=== PATIENT | male | born 1990 | race Two or more races ===

== ENCOUNTER 2020-10-05 16:43 | Emergency (ER) | payer SELFPAY ==
[~2020-10-05] VITALS: Ht 167.6 cm; Wt 81.2 kg
[2020-10-05 17:37] LABS: BILIRUBIN,URINE NEGATIVE (NEG); CLARITY,URINE CLOUDY; COLOR,URINE YELLOW; NITRITE,URINE NEGATIVE (NEG); PROTEIN,URINE NEGATIVE (NEG-TRACE)
[2020-10-05 17:46] LABS: BACTERIA,URINE 0 /HPF (0-FEW); WBC,URINE >40 /HPF (0-4)
[2020-10-05 17:58] VITALS: BP 134/94
--- NOTE | 2020-10-05 18:15 | PHYS DOC ---
Past Medical History Past Medical History: No Pertinent History Past Surgical History: No Surgical History Smoking Status: Never Smoker Alcohol Use: None General Adult EDM: Chief Complaint: PAIN ON URINATION HPI: HPI: Patient is a 30 year old male who presents with 2 days of burning with urination and white penile discharge. Patient states he has a possible sexually-transmitted disease. He denies abdominal pain, fever, back pain, nausea, vomiting, diarrhea, chest pain, shortness of air, headache, dizziness. He states he has no problems urinating and he feels that he fully drains his bladder. At this time denies any pain. Denies any past medical history. Review of Systems: Review of Systems: Constitutional: Denies fever or chills. [] Eyes: Denies change in visual acuity. [] HENT: Denies nasal congestion or sore throat. [] Respiratory: Denies cough or shortness of breath. [] Cardiovascular: Denies chest pain or edema. [] GI: Denies abdominal pain, nausea, vomiting, bloody stools or diarrhea. [] : + dysuria. + Penile discharge [] Musculoskeletal: Denies back pain or joint pain. [] Integument: Denies rash. [] Neurologic: Denies headache, focal weakness or sensory changes. [] Endocrine: Denies polyuria or polydipsia. [] Lymphatic: Denies swollen glands. [] Psychiatric: Denies depression or anxiety. [] Heart Score: C/O Chest Pain: No Risk Factors: Risk Factors: DM, Current or recent (<one month) smoker, HTN, HLP, family history of CAD, obesity. Risk Scores: Score 0 - 3: 2.5% MACE over next 6 weeks - Discharge Home Score 4 - 6: 20.3% MACE over next 6 weeks - Admit for Clinical Observation Score 7 - 10: 72.7% MACE over next 6 weeks - Early Invasive Strategies Allergies: Allergies: Allergies Coded Allergies Type Severity Reaction Last Updated Verified No Known Drug Allergies 10/05/20 No Physical Exam: PE: Constitutional: Well developed, well nourished, no acute distress, non-toxic appearance. [] HENT: Normocephalic, atraumatic, bilateral external ears normal, oropharynx moist, no oral exudates, nose normal. [] Eyes: PERRLA, EOMI, conjunctiva normal, no discharge. [] Neck: Normal range of motion, no tenderness, supple, no stridor. [] Cardiovascular:Heart rate regular rhythm, no murmur [] Lungs & Thorax: Bilateral breath sounds clear to auscultation [] Abdomen: Bowel sounds normal, soft, no tenderness, no masses, no pulsatile masses. [] Skin: Warm, dry, no erythema, no rash. [] Back: No tenderness, no CVA tenderness. [] Extremities: No tenderness, no cyanosis, no clubbing, ROM intact, no edema. [] Neurologic: Alert and oriented X 3, normal motor function, normal sensory function, no focal deficits noted. [] Psychologic: Affect normal, judgement normal, mood normal. Normal physical exam [] Current Patient Data: Labs: Laboratory Tests Test 10/05/20 17:09 Urine Collection Type Unknown Urine Color Yellow Urine Clarity Cloudy Urine pH 7.0 (<5.0-8.0) Urine Specific [place] 1.025 (1.000-1.030) Urine Protein Negative mg/dL (NEG-TRACE) Urine Glucose (UA) Negative mg/dL (NEG) Urine Ketones (Stick) Negative mg/dL (NEG) Urine Blood Small (NEG) Urine Nitrite Negative (NEG) Urine Bilirubin Negative (NEG) Urine Urobilinogen Dipstick 1.0 mg/dL (0.2 mg/dL) Urine Leukocyte Esterase Large (NEG) Urine RBC 11-20 /HPF (0-2) Urine WBC >40 /HPF (0-4) Urine Bacteria 0 /HPF (0-FEW) Urine Mucus Mod /LPF Vital Signs: Vital Signs Date Time Temp Pulse Resp B/P (MAP) Pulse Ox O2 Delivery O2 Flow Rate FiO2 10/05/20 17:58 98.2 87 16 134/94 (107) 98 Room Air 98.2 EKG: EKG: [] Radiology/Procedures: Radiology/Procedures: [] Course & Med Decision Making: Course & Med Decision Making Pertinent Labs and Imaging studies reviewed. (See chart for details) See HPI. Alert and oriented x4. Ambulatory with a steady gait. Speaks in full clear sentences. Skin pink warm and dry. Afebrile. No CVA tenderness. Abdomen is soft and nontender. Patient is given Rocephin and azithromycin. Patient is educated that the he will be called in 48 hours only if his chlamydia or gonorrhea comes back positive. Urinalysis shows leukocytes and white blood cells. No trichomonas is seen. [] Dragon Disclaimer: Dragon Disclaimer: This electronic medical record was generated, in whole or in part, using a voice recognition dictation system. Departure Departure Impression: Primary Impression: Sexually transmitted disease Additional Impression: Urinary symptom or sign Disposition: 01 DC HOME SELF CARE/HOMELESS Condition: STABLE Referrals: NO PCP (PCP) Patient Instructions: Sexually Transmitted Disease, Urinary Tract Infection Additional Instructions: Follow up with a urologist or primary care if needed. Drink plenty of fluids. Fever or symptoms do not go away return emergency room. [employer] Oct 05, 2020 18:15
[2020-10-05] MEDS ORDERED: cefTRIAXone IM 500 MG VIAL. IM ONE (18:45)
[2020-10-05] MEDS ORDERED: AZITHROMYCIN 250 MG TABLET. PO ONE (18:45)
== END 2020-10-05 18:51 | disposition home or self-care (01) ==
LOC: ER 16:43
DX: A64 Unspecified sexually transmitted disease (principal); R30.0 Dysuria
CPT/HCPCS: 81001; 87086; 87491; 87591; 96372; 99283; J0696